=== PATIENT | female | born 1935 ===

== ENCOUNTER → 2016-10-20 | Day surgery (SDC) | payer MEDICARE, OTHER ==
--- NOTE | 2016-10-16 10:48 | Pre-Procedure Note/Attestation ---
Pre-Procedure Note/Attestation Complete Prior to Procedure Planned Procedure: right Procedure Narrative: 1. CATARACT EXTRACTION WITH PHACO AND PC IOL IMPLANTATION, RIGHT EYE. 2.LIMBAL RELAXING INCISION,RIGHT EYE. Indications for Procedure Pre-Operative Diagnosis: 1. CATARACT ,RIGHT EYE. 2. ASTIGMATISM, RIGHT EYE. Attestation I attest that I discussed the nature of the procedure; its benefits; risks and complications; and alternatives (and the risks and benefits of such alternatives ), prior to the procedure, with the patient (or the patient's legal help desk representative). I attest that, if there was a reasonable possibility of needing a blood transfusion, the patient (or the patient's legal help desk representative) was given the [place] Department of Health Services standardized written summary, pursuant to the Glenn Jacobo Blood Safety Act ([place] Health and Safety Code # 1645, as amended). I attest that I re-evaluated the patient just prior to the surgery and that there has been no change in the patient's H&P, except as documented below: FALLON SOLIS Oct 16, 2016 10:48
[2016-10-20] VITALS (8 sets, daily range): BP systolic 135–154; BP diastolic 61–69
[~2016-10-20] VITALS: Ht 154.9 cm; Wt 55.3 kg
[~2016-10-20] MED LIST: Akten 3.5% 1ml Btl ONE; BSS 15ml BTL ONE; BSS 500ml btl ONE; Dexamethasone 4mg/ml vial ONE; Diclofenac Sod 0.1% Op Soln RIGHT EYE SCH; DiphenhydrAMINE 50mg/ml Inj IVP PRN; EPINEPHrine 1mg/1ml Amp ONE; Gatifloxacin Opth Solution 0.5% ONE; LR 1000ml 1,000 ML IVLG SCH; LR 1000ml ONE; Lidocaine 1% MPF 10mg/ml 5ml ONE; Midazolam 2mg/2ml Inj ONE; NKM; NS Irrig 1000ml ONE; Phenylephrine 10% Opth Soln 5ml ONE; Povidone-Iodine 5% opth solution ONE; Propofol 10mg/ml 20ml IV ONE; Sodium Hyaluronate 10 mg/ml 0.85ml ONE; Sterile Water Irrig 1000ml IRRIG ONE; Tropicamide 1% Opth Soln ONE; acetaZOLAMIDE 125mg tab ORAL ONE; fentaNYL 100 mcg/2 mL IV PRN
[2016-10-20] MEDS: Tropicamide 1% Opth Soln RIGHT EYE SCH ×3 (07:13→07:40)
[2016-10-20] MEDS: Akten 3.5% 1ml Btl RIGHT EYE SCH ×3 (07:13→07:40)
[2016-10-20] MEDS: Phenylephrine 10% Opth Soln 5ml RIGHT EYE SCH ×3 (07:14→07:41)
[2016-10-20] MEDS: Gatifloxacin Opth Solution 0.5% RIGHT EYE SCH ×3 (07:15→07:41)
--- NOTE | 2016-10-20 09:37 | Anethesia Preoperative Eval ---
Anesthesia Pre-op PMH/ROS General Date of Evaluation: Oct 20, 2016 Time of Evaluation: 09:10 Anesthesiologist: Dat ASA Score: ASA 3 Mallampati Score Class I : Soft palate, uvula, fauces, pillars visible Class II: Soft palate, uvula, fauces visible Class III: Soft palate, base of uvula visible Class IV: Only hard plate visible Mallampati Classification: Class II Surgeon: Adrian Diagnosis: R eye cataract Surgical Procedure: R eye cataract extraction Anesthesia History: none Family History: no anesthesia problems Allergies: Coded Allergies: ASPIRIN (Verified Allergy, Unknown, 10/20/16) rash Medications: see eMAR Past Medical History Cardiovascular: Reports: HTN, Denies: CAD, [place], arrhythmia, other, valve dz Pulmonary: Denies: COPD, WING, asthma, other Gastrointestinal/Genitourinary: Reports: GERD, Denies: CRI, ESRD, other Neurologic/Psychiatric: Reports: depression/anxiety, Denies: CVA, TIA, dementia, other Endocrine: Denies: DM, hypothyroidism, other, steroids HEENT: Reports: cataract (L), cataract (R), Denies: NINILCHIK (L), NINILCHIK (R), glaucoma, other Hematology/Immune: Denies: DVT, anemia, bleeding disorder, other Musculoskeletal/Integumentary: Reports: DJD, Denies: DDD, OA, RA, edema, other PMH Narrative: as above PSxH Narrative: Incarcerated hernia repair Anesthesia Pre-op Phys. Exam Physician Exam Last Vital Signs Date Time Temp Pulse Resp B/P Pulse Ox O2 Delivery O2 Flow Rate FiO2 10/20/16 07:22 97.8 71 20 154/69 98 Room Air Constitutional: NAD Neurologic: CN 2-12 intact Cardiovascular: RRR, no M/R/G Respiratory: CTA Gastrointestinal: S/NT/ND Airway Exam Mallampati Score: Class II MO: limited Neck: stiff ROM: limited Teeth: missing Dentures: no lower, no upper Anesthesia Pre-op A/P Labs see chart Studies Pre-op Studies: EKG - NSR Risk Assessment & Plan Assessment: ASA 3 Plan: MAC Status Change Before Surgery: No Pre-Antibiotics Drug: none NIDHI BURNS M.D. Oct 20, 2016 09:37
--- NOTE | 2016-10-20 10:03 | Brief Operative Note ---
Immediate Post Operative Note Operative Note Chief Complaint: Blurry vision, right eye. difficulty reading and watching TV. Pre-op Diagnosis: 1. CATARACT ,RIGHT EYE. 2. ASTIGMATISM, RIGHT EYE. Procedure: 1- Cataract extraction with phaco and PC IOL implantation, right eye. 2- Limbal relaxing incision ( LRI ), right eye Post-op Diagnosis: same as pre-op Surgeon: Fallon Campbell MD. Overlock Collar Setter: None Additional Surgeons: None Anesthesiologist: Dr. Stallings Anesthesia: MAC Specimen: none Complications: none Condition: stable Estimated Blood Loss: none Drains: none Implant(s) used?: Yes - Monofocal PC IOl implanted in the right eye without complication FALLON CAMPBELL Oct 20, 2016 10:03
--- NOTE | 2016-10-20 10:05 | Immediate Post-Op Evaluation ---
Immediate Post-Op Evalulation Immediate Post-Op Evalulation Procedure: R eye cataract extraction with IOL Date of Evaluation: Oct 20, 2016 Time of Evaluation: 10:04 IV Fluids: 250 Blood Products: none Estimated Blood Loss: none Urinary Output: none Blood Pressure Systolic: 141 Blood Pressure Diastolic: 63 Pulse Rate: 65 Respiratory Rate: 20 O2 Sat by Pulse Oximetry: 99 Temperature (Fahrenheit): 97.5 Pain Score (1-10): 1 Nausea: No Vomiting: No Complications none Patient Status: awake, patent, none Hydration Status: adequate NIDHI BURNS M.D. Oct 20, 2016 10:05
--- NOTE | 2016-10-20 11:20 | 48 Hour Post Anesthesia Eval ---
Post Anesthesia Evaluation Procedure: R eye cataract extraction with IOL Date of Evaluation: Oct 20, 2016 Time of Evaluation: 11:18 Blood Pressure Systolic: 138 0: 63 Pulse Rate: 72 Respiratory Rate: 20 Temperature (Fahrenheit): 97.4 O2 Sat by Pulse Oximetry: 98 Airway: patent Nausea: No Vomiting: No Pain Intensity: 2 Hydration Status: adequate Cardiopulmonary Status: stable Mental Status/LOC: patient returned to baseline Follow-up Care/Observations: n/a Post-Anesthesia Complications: none Follow-up care needed: ready to discharge NIDHI BURNS M.D. Oct 20, 2016 11:20
--- NOTE | 2016-10-20 16:12 | Discharge Summary ---
Discharge Summary Discharge Summary Discharge Summary DATE OF ADMISSION:10/20/2016 DATE OF DISCHARGE:10/20/2016 REASON FOR HOSPITALIZATION: Cataract, right eye SURGERY PERFORMED: Cataract extraction with phaco and PC IOL implantation, right eye. CONDITION IN THE HOSPITAL:The patient tolerated the surgery without complications. DISCHARGE CONDITION: The patient was stable at discharge. DISCHARGE MEDICATIONS: 1. Vigamox eye drops one drop q.i.d, 2. Prednisolone one drop q.i.d, 3. Ilevro eye drop, one drop q.d. POSTOPERATIVE ORDERS: The patient has to rest at home. No bending, No lifting, No watching Television tonight. POSTOPERATIVE FOLLOW UP: The patient will be followed in my office tomorrow morning at 7 o'clock. FALLON SOLIS Oct 20, 2016 16:12
--- NOTE | 2016-10-20 16:31 | Operative Note - PDOC ---
Operative Note Operative Note Operative Report DATE OF OPERATION:10/20/2016 FACILITY: [facility] SURGEON: Remy Campbell M.D. ZIPPER SLIDE ATTACHER: Alessandra ANESTHESIOLOGIST: Dr. Stallings ANESTHESIA: Monitored anesthesia care (MAC) PREOPERATIVE DIAGNOSES: 1. Cataract, right eye. 2. Astigmatism, right eye. POSTOPERATIVE DIAGNOSES: 1. Cataract, right eye. 2. Astigmatism, right eye. SURGERY PERFORMED: 1. Cataract extraction with phacoemulsification and posterior chamber intraocular lens implantation in the right eye. 2. Limbal relaxing incision (I.R.I) right eye. INDICATION FOR SURGERY: The patient is a 80- year-old lady with history of high blood pressure, osteopenia, spinal stenosis, female stress incontinence, GERD, disc degeneration, general osteoarthritis. She is taking meloxicam, ca++ vitamin D, magnesium, requip, maalox, lasix, claritin and docusate sodium.She is allergic to aspirin. She denies any drug or alcohol use. He is complaining of blurry vision in the right eye. On examination of the right eye., the cornea is clear. Anterior chamber is clean and quiet, but is shallow. The pupillary reflex is normal. There is no RAPD. There is 4 nuclear sclerosis and 2 cortical cataract. The fundus shows normal optic disc, normal macula, and periphery retina is flat. To improve his vision int he left eye, the cataract has to be removed and posterior chamber intraocular lens has to be implanted. INFORMED CONSENT: The nature of the surgery, risks benefits, alternatives, and potential complications were explained all in detail to the patient. The potential complications including. But not limited to bleeding, infection, posterior capsular rupture,lens subluxation, flat anterior chamber,iris prolapse , uveitis, corneal edema, macular edema, endophthalmitis, retinal detachment, loss of vision and even loss of the eye were all explained in detail to the patient. The patient voiced understanding and accepted all the complications.The alternatives including accommodating lens, multifocal lens, toric lens, and conventional cataract surgery with limbal relaxing incision (LRI ) for treatment of astigmatism were all explained in detail to the patient who voiced understanding. The patient elected to have cataract surgery with insertion of the monoifocal lens and limbal relaxing incision for astigmatism. Then, he signed the consent from,which is in the chart. DESCRIPTION OF SURGERY AND FINDINGS: Following hat, the patient was taken to the operation room in a stable condition. Lidocaine gel Akten 3.5% were applied to the conjunctiva of the right eye. Anesthesia was given by the anesthesiologist, Dr. Stallings. After adequate anesthesia and sedation had been achieved, the right eye was prepped and draped in the usual and sterile fashion for intraocular surgery.Following that, a speculum was placed in the right eye. Following that, before the patient was taken to the operation room, the 180 and 90 meridian of the cornea was marked. In the operation room, using a corneal marker and marking pen, the steep meridian of the cornea was marked. Following that, using a soheila knife, two parallel incisions was placed on the steep meridian of the cornea to treat the patients astigmatism. Following that, using a super sharp knife, a clear corneal side port was created. Following that 1% lidocaine without preservative (MPF) was injected into the anterior chamber.Viscoelastic agent Healon was injected into the anterior chamber. Following that, a clear corneal temporal keratotomy was performed with a 2.8 mm keratome. Following that, viscoelastic agent was injected into the anterior chamber again. Following that, Vision blue was injected under the viscoelastic agent to stain the anterior capsule. Following that, a clear fresh viscoelastic agent was injected into the anterior chamber again. Under the viscoelastic agent , an anterior capsulotomy was performed in the fashion of capsulorrhexis beautifully. Following that viscoelastic agent was removed from the anterior chamber. Following that, using a balanced salt solution hydrodissection and hydrodelineation was performed and the nucleus was freed. Following that, the viscoelastic agent was injected into the anterior chamber again to protect the endothelium of the cornea. Following that, using phacoemulsification machine inthe fashion of horizontal chop, the nucleus was removed in toto. Following that, the cortical material was removed from the capsular bag with irrigation aspiration unit and the capsular bag was polished.Following that, the capsular bag was filled with viscoelastic agent. Following that, a20.0 diopter, ZCB00 foldable PCIOL with serial number [id number] was injected into the capsular bag. Using a Sinskey hook, the lens was manipulated within the proper position.Following that, viscoelastic agent was removed from the anterior and posterior part of the lens.The anterior chamber was filled with balanced salt solution. Following that, the wound was hydrated with balanced salt solution and the wound was checked for leakage. There was no leakage. Following that, the wound was hydrated and the wound was checked for leakage. There was no leakage. Following that, Vigamox eye drops were applied to the conjunctiva of the left eye. The patient tolerated the surgery without complications. At the end of the surgery, the eye was patched with a clear sterile fenestrated shield. Following that, the patient was transferred to the recovery room. In the recovery room, 125mg Diamox was given by mouth stat. Postoperative orders and directions were given to the patient. The patient will be discharged home upon stabilization. The patient will be followed in my office tomorrow morning at 7 o 'clock. MD IRMA Nicole JOHN Oct 20, 2016 16:31
== END | disposition home or self-care (01) ==
LOC: SUR 06:14
DX: H25.11 Age-related nuclear cataract, right eye (principal); H25.011 Cortical age-related cataract, right eye; H52.201 Unspecified astigmatism, right eye; I10 Essential (primary) hypertension; K21.9 Gastro-esophageal reflux disease without esophagitis; M15.9 Polyosteoarthritis, unspecified; N39.3 Stress incontinence (female) (male); M81.0 Age-related osteoporosis without current pathological fracture; E05.90 Thyrotoxicosis, unspecified without thyrotoxic crisis or storm; M48.06 Spinal stenosis, lumbar region; F32.9 Major depressive disorder, single episode, unspecified; F41.9 Anxiety disorder, unspecified; Z79.82 Long term (current) use of aspirin
CPT/HCPCS: 66984; 66999; J0171; J1100; J2250; J2704; J7120; V2632; 94003; 94150

== ENCOUNTER → 2016-10-27 | Day surgery (SDC) | payer MEDICARE, OTHER ==
--- NOTE | 2016-10-23 14:07 | Pre-Procedure Note/Attestation ---
Pre-Procedure Note/Attestation Complete Prior to Procedure Planned Procedure: left Procedure Narrative: 1. CATARACT EXTRACTION WITH PHACO AND PC IOL IMPLANTATION, LEFT EYE. 2. LIMBAL RELAXING INCISION, LEFT EYE. Indications for Procedure Pre-Operative Diagnosis: 1. CATARACT ,LEFT EYE. 2. ASTIGMATISM. LEFT EYE. Attestation I attest that I discussed the nature of the procedure; its benefits; risks and complications; and alternatives (and the risks and benefits of such alternatives ), prior to the procedure, with the patient (or the patient's legal technical services representative). I attest that, if there was a reasonable possibility of needing a blood transfusion, the patient (or the patient's legal technical services representative) was given the [place] Department of Health Services standardized written summary, pursuant to the Glenn Jacobo Blood Safety Act ([place] Health and Safety Code # 1645, as amended). I attest that I re-evaluated the patient just prior to the surgery and that there has been no change in the patient's H&P, except as documented below: FALLON SOLIS Oct 23, 2016 14:07
[2016-10-27] VITALS (9 sets, daily range): BP systolic 129–146; BP diastolic 61–72
[~2016-10-27] VITALS: Ht 154.9 cm; Wt 55.3 kg
[~2016-10-27] MED LIST changes: -Akten 3.5% 1ml Btl ONE; -Diclofenac Sod 0.1% Op Soln RIGHT EYE SCH; -Gatifloxacin Opth Solution 0.5% ONE; -Phenylephrine 10% Opth Soln 5ml ONE; -Tropicamide 1% Opth Soln ONE
[2016-10-27] MEDS: Tropicamide 1% Opth Soln LEFT EYE SCH ×3 (08:06→08:22)
[2016-10-27] MEDS: Phenylephrine 10% Opth Soln 5ml LEFT EYE SCH ×3 (08:07→08:21)
[2016-10-27] MEDS: Gatifloxacin Opth Solution 0.5% LEFT EYE SCH ×3 (08:07→08:22)
[2016-10-27] MEDS: Akten 3.5% 1ml Btl LEFT EYE SCH ×3 (08:08→08:22)
--- NOTE | 2016-10-27 08:24 | Discharge Summary ---
Discharge Summary Discharge Summary Discharge Summary DATE OF ADMISSION:10/27/2016 DATE OF DISCHARGE:o10/27/2016 REASON FOR HOSPITALIZATION:1- Cataract,left eye 2- Complex cataract SURGERY PERFORMED: 1- Cataract extraction with phaco and PC IOL implantation, left eye. 2- Malyugin ring insertion, left eye CONDITION IN THE HOSPITAL:The patient tolerated the surgery without complications. DISCHARGE CONDITION: The patient was stable at discharge. DISCHARGE MEDICATIONS: 1. Vigamox eye drops one drop q.i.d, 2. Prednisolone one drop q.i.d, 3. Ilevro eye drop, q.i.d. left eye 4- Dianox 250 mg po q.i.d. 4- Combigan one drop q.i.d. left eye POSTOPERATIVE ORDERS: The patient has to rest at home. No bending, No lifting, No watching Television tonight. POSTOPERATIVE FOLLOW UP: The patient will be followed in my office tomorrow morning at 6.30 o'clock. FALLON SOLIS Oct 27, 2016 08:24
--- NOTE | 2016-10-27 08:49 | Anethesia Preoperative Eval ---
Anesthesia Pre-op PMH/ROS General Date of Evaluation: Oct 27, 2016 Time of Evaluation: 08:15 Anesthesiologist: Chandrakant ASA Score: ASA 2 Mallampati Score Class I : Soft palate, uvula, fauces, pillars visible Class II: Soft palate, uvula, fauces visible Class III: Soft palate, base of uvula visible Class IV: Only hard plate visible Mallampati Classification: Class II Surgeon: Adrian Diagnosis: L eye cataract Surgical Procedure: L eye cataract extraction with IOL Anesthesia History: none Family History: no anesthesia problems Allergies: Coded Allergies: ASPIRIN (Verified Allergy, Unknown, 10/20/16) rash Medications: see eMAR Past Medical History Cardiovascular: Reports: HTN, Denies: CAD, [place], arrhythmia, other, valve dz Pulmonary: Denies: COPD, WING, asthma, other Gastrointestinal/Genitourinary: Reports: GERD, Denies: CRI, ESRD, other Neurologic/Psychiatric: Reports: depression/anxiety, Denies: CVA, TIA, dementia, other Endocrine: Denies: DM, hypothyroidism, other, steroids HEENT: Reports: cataract (L), cataract (R), Denies: KOOTENAI (L), KOOTENAI (R), glaucoma, other Hematology/Immune: Reports: anemia - mild, Denies: DVT, bleeding disorder, other Musculoskeletal/Integumentary: Reports: DJD, Denies: DDD, OA, RA, edema, other PMH Narrative: as above PSxH Narrative: see chart Anesthesia Pre-op Phys. Exam Physician Exam Last Vital Signs Date Time Temp Pulse Resp B/P Pulse Ox O2 Delivery O2 Flow Rate FiO2 10/27/16 08:23 97.1 66 18 145/69 98 Room Air Constitutional: NAD Neurologic: CN 2-12 intact Cardiovascular: RRR, no M/R/G Respiratory: CTA Gastrointestinal: S/NT/ND Airway Exam Mallampati Score: Class II MO: limited Neck: stiff ROM: limited Teeth: missing Dentures: no lower, no upper Anesthesia Pre-op A/P Labs see chart Studies Pre-op Studies: EKG - NSR Risk Assessment & Plan Assessment: ASA 2 Plan: MAC Status Change Before Surgery: No Pre-Antibiotics Drug: none NIDHI BURNS M.D. Oct 27, 2016 08:49
--- NOTE | 2016-10-27 09:23 | Brief Operative Note ---
Immediate Post Operative Note Operative Note Chief Complaint: Blurry left eye, difficulty watching TV and reading, left eye Pre-op Diagnosis: 1. CATARACT ,LEFT EYE. 2. ASTIGMATISM. LEFT EYE. Procedure: 1- Cataract extraction with phaco and PC IOL implantation, left eye 2- Limbal relaxing incision ( LRI ), left eye. Post-op Diagnosis: same as pre-op Surgeon: Fallon Campbell MD Historical Archeologist: Paul Additional Surgeons: None Anesthesiologist: Dr. Adrian MD. Anesthesia: MAC Specimen: none Complications: none Condition: stable Estimated Blood Loss: none Drains: none Implant(s) used?: Yes - Monofocal PC IOL implanted in the left eye without complication. FALLON CAMPBELL Oct 27, 2016 09:23
--- NOTE | 2016-10-27 10:07 | Immediate Post-Op Evaluation ---
Immediate Post-Op Evalulation Immediate Post-Op Evalulation Procedure: L eye cataract extraction with IOL Date of Evaluation: Oct 27, 2016 Time of Evaluation: 09:22 IV Fluids: 200 Blood Products: none Estimated Blood Loss: none Urinary Output: none Blood Pressure Systolic: 145 Blood Pressure Diastolic: 58 Pulse Rate: 72 Respiratory Rate: 20 O2 Sat by Pulse Oximetry: 99 Temperature (Fahrenheit): 97.5 Pain Score (1-10): 2 Nausea: No Vomiting: No Complications none Patient Status: awake, patent, none Hydration Status: adequate NIDHI BURNS M.D. Oct 27, 2016 10:07
--- NOTE | 2016-10-27 10:37 | 48 Hour Post Anesthesia Eval ---
Post Anesthesia Evaluation Procedure: L eye cataract extraction with IOL Date of Evaluation: Oct 27, 2016 Time of Evaluation: 10:36 Blood Pressure Systolic: 146 0: 72 Pulse Rate: 68 Respiratory Rate: 20 Temperature (Fahrenheit): 97.6 O2 Sat by Pulse Oximetry: 98 Airway: patent Nausea: No Vomiting: No Pain Intensity: 2 Hydration Status: adequate Cardiopulmonary Status: stable Mental Status/LOC: patient returned to baseline Follow-up Care/Observations: n/a Post-Anesthesia Complications: none Follow-up care needed: ready to discharge NIDHI BURNS M.D. Oct 27, 2016 10:37
--- NOTE | 2016-10-27 10:55 | Discharge Summary ---
Discharge Summary Discharge Summary Discharge Summary DATE OF ADMISSION:10/27/2016 DATE OF DISCHARGE: REASON FOR HOSPITALIZATION:1- Cataract, left eye 2- Astigmatism, left eye. SURGERY PERFORMED: 1- Cataract extraction with phaco and PC IOl implantation, left eye. 2- Limbal Relaxing Incision, ( LRI ), left eye CONDITION IN THE HOSPITAL:The patient tolerated the surgery without complications. DISCHARGE CONDITION: The patient was stable at discharge. DISCHARGE MEDICATIONS: 1. Vigamox eye drops one drop q.i.d, 2. Prednisolone one drop q.i.d, 3. Ilevro eye drop, one drop q.i.d. POSTOPERATIVE ORDERS: The patient has to rest at home. No bending, No lifting, No watching Television tonight. POSTOPERATIVE FOLLOW UP: The patient will be followed in my office tomorrow morning at 6.30 o'clock. FALLON SOLIS Oct 27, 2016 10:55
--- NOTE | 2016-10-27 11:13 | Operative Note - PDOC ---
Operative Note Operative Note Operative Report DATE OF OPERATION: 10/27/2016 FACILITY: [facility] SURGEON: Remy Campbell MD. HIGH SPEED WARPER TENDER: None ANESTHESIOLOGIST: Dr. Le ANESTHESIA: Monitored anesthesia care (MAC) PREOPERATIVE DIAGNOSES: 1. Cataract, left eye. 2. Astigmatism, left eye. POSTOPERATIVE DIAGNOSES: 1. Cataract, left eye. 2. Astigmatism, left eye. SURGERY PERFORMED: 1. Cataract extraction with phacoemulsification and posteriro chamber intraocular lens implantation in the left eye. 2. Limbal relaxing incision (I.R.I) left. INDICATION FOR SURGERY: The patient is an 89- year-old lady with history of high blood pressure, osteoarthritis,spinal atenosis, female stress incontinanceand disc degeneration. she is takingmeloxicam, Ca and vit.D, zantac , Vesicare, lasix, and diovan.She is allergic to ASA. she denies smoking. She is complaining of blurry vision in the left eye. She had cataract surgery in the right eye last week and she is happy with the result. On examination of the Left eye., the cornea is clear. Anterior chamber is clean and quiet, but is shallow. The pupillary reflex is normal. There is no RAPD. There is 4 nuclear sclerosis and 2 cortical cataract. The fundus shows normal optic disc, normal macula, and periphery retina is flat. To improve her vision int he left eye, the cataract has to be removed and posterior chamber intraocular lens has to be implanted. INFORMED CONSENT: The nature of the surgery, risks benefits, alternatives, and potential complications were explained all in detail to the patient. The potential complications including. But not limited to bleeding, infection, posterior capsular rupture,lens subluxation, flat anterior chamber,iris prolapse , uveitis, corneal edema, macular edema, endophthalmitis, retinal detachment, loss of vision and even loss of the eye were all explained in detail to the patient. The patient voiced understanding and accepted all the complications.The alternatives including accommodating lens, multifocal lens, toric lens, and conventional cataract surgery with limbal relaxing incision (LRI ) for treatment of astigmatism were all explained in detail to the patient who voiced understanding. The patient elected to have cataract surgery with insertion of the multifocal lens and limbal relaxing incision for astigmatism. Then, she signed the consent from,which is in the chart. DESCRIPTION OF SURGERY AND FINDINGS: Following that, the patient was taken to the operation room in a stable condition. Lidocaine gel Akten 3.5% were applied to the conjunctiva of the left eye. Anesthesia was given by the anesthesiologist , Dr. Stallings. After adequate anesthesia and sedation had been achieved, the left eye was prepped and draped in the usual and sterile fashion for intraocular surgery.Following that, a speculum was placed in the left eye. Following that, before the patient was taken to the operation room, the 180 and 90 meridian of the cornea was marked. In the operation room, using a corneal marker and marking pen, the steep meridian of the cornea was marked. Following that, using a soheila knife, two parallel incisions was placed on the steep meridian of the cornea to treat the patients astigmatism. Following that, using a super sharp knife, a clear corneal side port was created. Following that 1% lidocaine without preservative (MPF) was injected into the anterior chamber.Viscoelastic agent Healon was injected into the anterior chamber. Following that, a clear corneal temporal keratotomy was performed with a 2.8 mm keratome. Following that, viscoelastic agent was injected into the anterior chamber again. Following that, Vision blue was injected under the viscoelastic agent to stain the anterior capsule. Following that, a clear fresh viscoelastic agent was injected into the anterior chamber again. Under the viscoelastic agent , an anterior capsulotomy was performed in the fashion of capsulorrhexis beautifully. Following that viscoelastic agent was removed from the anterior chamber. Following that, using a balanced salt solution hydrodissection and hydrodelineation was performed and the nucleus was freed. Following that, the viscoelastic agent was injected into the anterior chamber again to protect the endothelium of the cornea. Following that, using phacoemulsification machine in the fashion of horizontal chop, the nucleus was removed in toto. Following that , the cortical material was removed from the capsular bag with irrigation aspiration unit and the capsular bag was polished.Following that, the capsular bag was filled with viscoelastic agent. Following that, a + 20.50 diopter , ZCB00 foldable PCIOL with serial number [id number] was injected into the capsular bag. Using a Sinskey hook, the lens was manipulated within the proper position.Following that, viscoelastic agent was removed from the anterior and posterior part of the lens.The anterior chamber was filled with balanced salt solution. Following that, the wound was hydrated with balanced salt solution and the wound was checked for leakage. There was no leakage. Following that, the wound was hydrated and the wound was checked for leakage. There was no leakage. Following that, Vigamox eye drops were applied to the conjunctiva of the left eye. The patient tolerated the surgery without complications. At the end of the surgery, the eye was patched with a clear sterile fenestrated shield. Following that, the patient was transferred to the recovery room. In the recovery room, 125mg Diamox was given by mouth stat. Postoperative orders and directions were given to the patient. The patient will be discharged home upon stabilization. The patient will be followed in my office tomorrow morning at 6.30 o'clock. MD IRMA Nicole JOHN Oct 27, 2016 11:13
--- NOTE | 2016-10-27 13:28 | Pre-op HX & Phy Repo 2 SIG ---
DATE OF ADMISSION: 10/27/2016 PRESURGICAL INTERNAL MEDICINE HISTORY AND PHYSICAL REASON FOR EVALUATION: I was asked by Dr. Remy Campbell to see this 81-year-old female, who is going for elective surgery on the left eye. The patient has a cataract left eye. Please see full History and Physical by Dr. Remy Campbell. The patient is Farsi speaking female, translation obtained from the daughter at bedside. The patient is alert. PAST MEDICAL HISTORY: Denies history of heart attack, chest pain, or palpitation. No history of respiratory problem, asthma or bronchitis. No pneumonia. Denies history of GI bleeding. The patient has a history of GERD. History of hiatal hernia. No history of hypertension or stroke. No history of diabetes. Denies history of renal failure. No thyroid or anemia. The patient is also complaining of and knee pain. PAST SURGICAL HISTORY: Right eye cataract last week, hysterectomy 30 years ago, hiatal hernia 6 months ago, abdominal hernia repair. MEDICATIONS: Current Medications include vitamin D, calcium supplement, and B complex. ALLERGIES: The patient is allergic to aspirin. HABITS: Denies tobacco or alcohol use. No street drugs. FAMILY HISTORY: Both parents from old age. PHYSICAL EXAMINATION: GENERAL: Alert, small-framed female in her 70s. No acute distress. The patient's BMI is 22.7. She weighs 120 pounds and 5 feet 1 inch tall. VITAL SIGNS: Blood pressure 145/69, temperature 97.9 degrees, pulse 67, and O2 saturation 98%. SKIN: Warm, pale and clear. LYMPHATICS: Lymph nodes not enlarged. HEENT: Head, normocephalic. Eyes, full description per Dr. Campbell. Mouth, clear and moist. She has dentures upper and lower. GENITOURINARY: No jugular vein distention. Carotids artery +2. Trachea midline. CHEST: No deformity or asymmetry. LUNGS: Clear. No rales or rhonchi. HEART: Sinus rhythm. No ectopy. No murmur. No S3 or S4. ABDOMEN: Soft and benign. Liver and spleen not enlarged. No rebound. EXTREMITIES: No peripheral edema. No calf tenderness. No varicose vein. Degenerative joint disease of knee. GENITOURINARY: CVA nontender. No dysuria. The patient use a cane to ambulate. NEUROLOGIC SYSTEM: No tremor. No nystagmus or asymmetry. Laboratory And Diagnostic Data: ECG done last week normal sinus rhythm, normal axis, normal limit. The patient did not eat from 9:30 p.m. yesterday. Laboratory work, potassium 4.9, sodium 139, BUN 17, and creatinine 1.1. Hemoglobin 12.5. IMPRESSION: 1. Cataract, left eye. 2. Osteoarthritis, osteoporosis, degenerative joint disease of knee. 3. Hiatal hernia. PLAN: Cataract extraction, left eye with intraocular lens implant per Dr. Remy Campbell. Conclusion: The patient's vital signs are stable. ECG normal limits. Laboratory normal. The patient did not eat or drink from 9:30 p.m. yesterday. ECG normal limits. The patient's condition optimized for surgery. Thank you very much, Dr. Campbell, for privilege to participate presurgical care of this interesting patient. chart, [id number] communication for 60 minutes. Veronique Steiner M.D. DR: Hazel JOB#: [id number] CC:
== END | disposition home or self-care (01) ==
LOC: SUR 07:36
DX: H25.12 Age-related nuclear cataract, left eye (principal); H25.012 Cortical age-related cataract, left eye; H52.202 Unspecified astigmatism, left eye; K21.9 Gastro-esophageal reflux disease without esophagitis; K44.9 Diaphragmatic hernia without obstruction or gangrene; I10 Essential (primary) hypertension; N39.3 Stress incontinence (female) (male); M17.9 Osteoarthritis of knee, unspecified; M81.0 Age-related osteoporosis without current pathological fracture; F32.9 Major depressive disorder, single episode, unspecified; F41.9 Anxiety disorder, unspecified; D64.9 Anemia, unspecified; M48.00 Spinal stenosis, site unspecified; Z90.710 Acquired absence of both cervix and uterus; Z88.6 Allergy status to analgesic agent
CPT/HCPCS: 66984; 66999; J0171; J1100; J2250; J2704; J7120; V2632; 94003; 94150